=== PATIENT | male | born 1970 | race Caucasian/White ===

== ENCOUNTER 2017-06-28 11:06 | Outpatient (CLI) | payer BC ==
[2017-06-28 13:19] LABS: Anion Gap 11 mmol/L (10-20); BUN (Urea Nitrogen) 13 mg/dL (8.9-20.6); Calc. Creatinine Clearance 0 mL/min (70-130); Calcium 9.8 mg/dL (7.8-10.44); Carbon Dioxide 26 mmol/L (22-29); Chloride 105 mmol/L (98-107); Estimated GFR-MDRD Greater than 90; Glucose 101 mg/dL (70-105); Potassium 4.1 mmol/L (3.5-5.1); Sodium 138 mmol/L (136-145)
--- NOTE | 2017-06-29 06:26 | EKG ---
Test Reason : Blood Pressure : / mmHG Vent. Rate : 094 BPM Atrial Rate : 094 BPM P-R Int : 146 ms QRS Dur : 084 ms QT Int : 350 ms P-R-T Axes : 063 039 058 degrees QTc Int : 437 ms Normal sinus rhythm RSR' or QR pattern in V1 suggests right ventricular conduction delay Borderline ECG When compared with ECG of 19-JUN-2013 07:32, Nonspecific T wave abnormality has replaced inverted T waves in Lateral leads Confirmed by CHICO ROGER ([id number]) on 06/29/2017 6:25:54 AM Referred By: AMY Confirmed By:CHICO ROGER
== END 2017-06-28 11:07 | disposition home or self-care (01) ==
LOC: LABBT 11:06
PROVIDERS: ATTEND Surgery
DX: Z01.818 Encounter for other preprocedural examination (principal); K42.9 Umbilical hernia without obstruction or gangrene
CPT/HCPCS: 80048; 93005; 93010

== ENCOUNTER 2017-07-05 09:56 | Day surgery (SDC) | payer BC ==
[2017-06-28 11:34] VITALS: BMI 32.1
[2017-07-05] MEDS ORDERED: CEFAZOLIN/Water 2 GM/20 ML SYRINGE ONE (10:38)
[2017-07-05] MEDS ORDERED: Fentanyl 100 MCG/2 ML VIAL ONE ×2 (11:48→13:23)
[2017-07-05] MEDS ORDERED: Lidocaine 1% w/Epinephrine 1:200K 30 ML VIAL ONE (12:05)
[2017-07-05] MEDS ORDERED: Bupivacaine 0.25% HCL 30 ML VIAL ONE (12:05)
[2017-07-05] MEDS ORDERED: Propofol 200 MG/20 ML VIAL ONE (12:28)
[2017-07-05] MEDS ORDERED: Lidocaine 1% PF 5 ML VIAL ONE (12:28)
[2017-07-05] MEDS ORDERED: Ondansetron HCl/PF 4 MG/2 ML Vial ONE (12:28)
--- NOTE | 2017-07-05 13:09 | OP ---
DATE OF SURGERY: 07/05/2017 PREOPERATIVE DIAGNOSIS: Umbilical hernia. POSTOPERATIVE DIAGNOSIS: Umbilical hernia. PROCEDURE PERFORMED: Umbilical hernia repair with mesh, Proceed ventral patch 4 cm. SURGEON: Riley Kothari M.D. ANESTHESIA: General. ESTIMATED BLOOD LOSS: Minimal. COMPLICATIONS: None. SPECIMEN: None. FINDINGS: Umbilical hernia. TECHNIQUE: The patient was taken to the operating room and placed supine on the table. After genera l anesthetic was obtained, the abdomen was shaved, and draped in a sterile fashion. Curved incision made below the umbilicus. Cautery was used to dissect down to the fascia. The umbilical stalk was a mputated from the fascia, exposing the umbilical defect. The edges of the defect were freshened. Th e preperitoneal space was bluntly dissected through the defect. A Proceed ventral patch 4 cm small v ersion was brought in a sterile field. The underlay was placed in this preperitoneal space. Its fadumo ls were used to pull up flat against the posterior abdominal wall. The overlay tails were sewn via U stitch of permanent braided suture to the lateral edges of the fascia superiorly and inferiorly. Th e tails were then cut at the level of the fascia. The wound was irrigated. Local anesthetic was kell lied. The fascia was closed loosely over the mesh using permanent braided suture. 3-0 Vicryl was us ed to tack the umbilical stalk back down. The wound was closed using 3-0 Vicryl, 4-0 Monocryl, and D ermabond. The patient was en route to recovery in stable condition. All instrument counts, needle c ounts, and lap counts were correct.
[2017-07-05] MEDS ORDERED: Ketorolac Tromethamine 30 MG/ML VIAL ONE (13:12)
== END 2017-07-05 15:40 | disposition home or self-care (01) ==
LOC: SDC 09:56
PROVIDERS: ATTEND Surgery
PROC: 0WUF0JZ Supplement Abdominal Wall with Synthetic Substitute, Open Approach (ICD-10-PCS; principal; 2017-07-05)
DX: K42.9 Umbilical hernia without obstruction or gangrene (principal); I10 Essential (primary) hypertension; N52.9 Male erectile dysfunction, unspecified; R53.83 Other fatigue; F17.200 Nicotine dependence, unspecified, uncomplicated
CPT/HCPCS: 96374; C1781; J1885; J2001; J2405; J2704; J3010; S0020

== ENCOUNTER 2018-10-28 09:03 | Outpatient (CLI) | payer OTHER ==
--- NOTE | 2018-10-28 11:12 | MRI ---
MRI Upper Ext Jt Rt WO Con History: [Pain] Comparison: MRI right shoulder 2018 Findings: Biceps; moderate extra arterial biceps tenosynovitis. Moderate intra-articular tendinosis. Superior labral tear extending to the biceps labral anchor. Labrum: There is maceration with circumferential tearing of the labrum extending to the biceps labral anchor. Paraluteal cyst formation surrounds the superior one half of the glenoid. Rotator cuff: 30-40% bursal surface partial tearing of the supraspinatus tendon with calcific tendino sis. There is also a mild undersurface fraying of the supraspinous tendon. Deep undersurface partial tearing subscapularis. Bones: Os acromiale is present. Large subcortical cyst formation in the glenoid. Cartilage: Complete cartilage loss of the inferior one half of the glenoid and of the humeral head. Muscles: Muscle bulk is without significant atrophy. Impression: 1. Circumferential labral maceration with extensive paravertebral pseudocyst formation. 2. Os acromiale without significant edema on either side of the synchondrosis. 3. Moderate extra articular biceps tenosynovitis with intra-articular interstitial tearing. 4. 30-40% bursal surface partial tearing of the supraspinatus tendon with calcific tendinosis near th e footprint. 5. High-grade chondral loss of the inferior one half glenoid as well as humeral head with osteophyte formation.
== END 2018-10-28 09:04 | disposition home or self-care (01) ==
LOC: BICMRI 09:03
PROVIDERS: ATTEND Orthopaedic Surgery
DX: M75.41 Impingement syndrome of right shoulder (principal); M75.111 Incomplete rotator cuff tear or rupture of right shoulder, not specified as traumatic; M65.811 Other synovitis and tenosynovitis, right shoulder; M75.31 Calcific tendinitis of right shoulder; M25.711 Osteophyte, right shoulder

== ENCOUNTER 2020-05-01 12:42 | Outpatient (CLI) | payer OTHER ==
--- NOTE | 2020-05-01 13:48 | MRI ---
MR the lumbar spine without contrast: 05/01/2020 History: Low back pain radiating down the right leg COMPARISON: None. TECHNIQUE: Multiplanar multisequence MR images were obtained of lumbar spine without IV contrast FINDINGS: On the basis of 5 lumbar type vertebral bodies, conus medullaris terminates at [id number] level. Sagittal STIR imaging demonstrates no focal area of osseous marrow edema. T12-L1:Mild left facet hypertrophy. No significant central canal or neural foraminal stenosis. L1-2:Mild bilateral facet hypertrophy with no central canal or neural foraminal stenosis. L2-3:Mild bilateral facet hypertrophy, right greater than left. No central canal or neural foraminal stenosis. L3-4:Significant bilateral facet hypertrophy with fluid within bilateral facet joints. Mild disc selin ccation. No significant central canal or neural foraminal stenosis. L4-5:Disc space narrowing with disc desiccation and disc bulge. Small central disc protrusion. Bilate ral facet hypertrophy. Mild central canal stenosis and mild right neural foraminal stenosis. Right lateral osteophyte formation and degenerative endplate change. L5-S1:Unremarkable Image retroperitoneal structures demonstrateno acute abnormality. IMPRESSION: Multilevel degenerative change within the lumbar spine, most prominent at L4-5. Fluid within bilatera l L3-4 facet joints may signify instability. Follow-up flexion-extension radiographs suggested.
== END 2020-05-01 12:43 | disposition home or self-care (01) ==
LOC: TBSIIMAG 12:42
PROVIDERS: ATTEND Neurological Surgery
DX: M47.26 Other spondylosis with radiculopathy, lumbar region (principal)
CPT/HCPCS: 72148